=== PATIENT | female | born 1995 | race Caucasian/White ===

== ENCOUNTER 2017-02-25 15:43 | Emergency (ER) | payer OTHER, BC ==
[2017-02-25 16:01] LABS: BASOPHIL COUNT 0.1 K/uL (0-0.1); EOSINOPHIL (%) 1.1 % (0-5); EOSINOPHIL COUNT 0.1 K/uL (0-0.3); HEMATOCRIT 41.7 % (36.0-46.0); IMMATURE GRANULOCYTE (%) 0.3 % (0.0-0.7); INSTRUMENT ABS NEUTROPHIL CT 5.2 K/uL; LYMPHOCYTE COUNT 3.4 K/uL (1.0-2.8); MCH 29.4 PG (29.0-34.0); MCHC 33.8 G/DL (30.0-36.0); MCV 87.1 FL (83-99); MONOCYTE (%) 5.5 % (3-12); MONOCYTE COUNT 0.5 K/uL (0-0.8); NEUTROPHIL (%) 55.8 % (45-76); NEUTROPHIL COUNT 5.2 K/uL (1.8-6.4); PLATELET COUNT 194 K/uL (156-360); RBC DIS.WIDTH-CV 12.1 % (11.8-14.6); RBC DIS.WIDTH-SD 39.1 % (39-53); RED BLOOD COUNT 4.79 M/uL (3.80-5.20); WHITE BLOOD COUNT 9.4 K/uL (4.1-10.2)
[2017-02-25 16:25] LABS: AMYLASE 33 IU/L (1-118); ANION GAP 8 MEQ/L (2-14); CHLORIDE 107 MEQ/L (99-109); GFR ESTIMATE (CALCULATED) > 59 mL/min/; GLUCOSE 77 mg/dL (70-99); LIPASE 25 U/L (1.0-51.0); POTASSIUM 3.9 MEQ/L (3.7-5.4); SAMPLE HEMOLYSIS CHECK 0; SAMPLE ICTERIC CHECK 0; SAMPLE LIPEMIA CHECK 0; SERUM ETHYL ALCOHOL < 10 mg/dL; SODIUM 139 MEQ/L (136-147); UREA NITROGEN (BUN) 11 mg/dL (9-23)
[2017-02-25 16:51] LABS: QUANTITATIVE HCG < 4.0 MIU/ML
[2017-02-25] MEDS ORDERED: ROBAXIN750 MG PO (17:43)
[2017-02-25] MEDS ORDERED: MOTRIN600 MG PO (17:43)
== END 2017-02-25 18:28 | disposition home or self-care (01) ==
LOC: TRA 15:43
PROVIDERS: Emergency Medicine
DX: S13.4XXA Sprain of ligaments of cervical spine, initial encounter (principal); M54.6 Pain in thoracic spine; M25.511 Pain in right shoulder; V49.50XA Passenger injured in collision with unspecified motor vehicles in traffic accident, initial encounter
CPT/HCPCS: 72040; 73010; 80048; 81003; 82150; 83690; 84702; 85025; 86850; 86900; 86901; G0480